=== PATIENT | female | born 1935 | race Caucasian/White ===

== ENCOUNTER 2018-09-02 09:47 | Emergency (ER) | payer MEDICARE ==
[~2018-09-02] VITALS: Ht 149.9 cm; Wt 65.8 kg
--- NOTE | 2018-09-02 09:47 | NUR ---
PT BIBA BLS TO ER BED 04
[2018-09-02 09:48] VITALS: BP 180/76
--- NOTE | 2018-09-02 09:50 | NUR ---
83/F BIBA FROM HOME C/O fell in bedroom from sitting position, hit head, found alert by son in law. -loc. sustained hematoma to L forehead pain 02/09. BLEEDING FROM 4TH TOENAIL ; BLEEDING IN CONTROL. gcs 15. alert and oriented on arrival. no deficitis noted. hx--- htn, dm, high cholesterol , arthritis. Addendum: 09/02/18 at 1040 by [email or web address] SARAHY LEGS SLIGHTLY REDNESS & SWELLING; + PEDAL PULSE. Addendum: 09/02/18 at 1142 by [email or web address] RETAINED ARTIS'S CATH FROM HOME URINE 1000 CC ;YELLOW.
--- NOTE | 2018-09-02 09:55 | NUR ---
Patient being evaluated by DR TURNER at bedside.
[2018-09-02] MEDS ORDERED: LISI-420 PO (09:59)
[2018-09-02] MEDS ORDERED: DULO20EC PO (09:59)
[2018-09-02] MEDS ORDERED: METF500T2 PO (09:59)
[2018-09-02] MEDS ORDERED: AMLO5TAB PO (09:59)
[2018-09-02] MEDS ORDERED: ASPI81CT89 PO (09:59)
[2018-09-02] MEDS ORDERED: SIMV10TA1 PO (09:59)
[2018-09-02] MEDS ORDERED: GLIP10TE PO (09:59)
[2018-09-02] MEDS ORDERED: ATEN25TA7 PO (09:59)
[2018-09-02] MEDS ORDERED: NACL 0.9% 1,000 ML IV ONE ×2 (10:00→11:25)
--- NOTE | 2018-09-02 10:24 | NUR ---
EKG AT BEDSIDE
[2018-09-02 10:26] LABS: BASOPHILS # (AUTO) 0.1 K/uL (0.00-0.22); EOSINOPHILS # (AUTO) 0.3 K/uL (0-0.4); EOSINOPHILS % (AUTO) 2.8 % (0.0-4.0); HEMATOCRIT 29.5 % (36-48); HEMOGLOBIN 9.8 g/dL (12.0-16.0); LYMPHOCYTES # (AUTO) 1.8 K/uL (2.5-16.5); LYMPHOCYTES % (AUTO) 19.1 % (20.5-51.1); MEAN CORPUSCULAR HEMOGLOBIN 29 pg (27-31); MEAN CORPUSCULAR HGB CONC 33 g/dL (33-37); MEAN CORPUSCULAR VOLUME 87.8 fL (80-94); MONOCYTES # (AUTO) 1.1 K/uL (0.8-1.0); MONOCYTES % (AUTO) 11.9 % (1.7-9.3); NEUTROPHILS # (AUTO) 6.1 K/uL (1.8-7.7); NEUTROPHILS % (AUTO) 65.2 % (42.2-75.2); PLATELET COUNT (AUTO) 279 K/uL (140-450); RED BLOOD CELL COUNT(AUTO) 3.36 MIL/uL (4.20-5.40); WHITE BLOOD COUNT (AUTO) 9.3 K/uL (4.8-10.8)
[2018-09-02 10:39] LABS: PROTHROMBIN TIME 9.9 secs (10.8-13.4)
[2018-09-02] MEDS ORDERED: BACITRACIN OINT 500 UNITS/GM PKT TP ONE (10:40)
[2018-09-02] MEDS ORDERED: NEOMYCIN/POLYMYXIN/BACITRACIN 0.9 GM/1 PKT TP ONE (10:40)
[2018-09-02 10:42] LABS: ALBUMIN 3.2 g/dL (3.4-5.0); ANION GAP 13.2 (8-16); ASPARTATE AMINOTRANSFERASE 35 U/L (15-37); CARBON DIOXIDE 27.9 mmol/L (21-32); CHLORIDE 90 mmol/L (98-107); CREATININE 0.6 mg/dL (0.6-1.3); GLUCOSE 134 mg/dL (74-106); MAGNESIUM 1.4 mg/dL (1.8-2.4); POTASSIUM 4.1 mmol/L (3.5-5.1); SODIUM SERUM 127 mmol/L (136-145); TOTAL BILIRUBIN 0.5 mg/dL (0.0-1.0); UREA NITROGEN, BLOOD 19 mg/dL (7-18)
[2018-09-02 10:43] LABS: ACETONE, SERUM NEGATIVE (NEGATIVE); AMYLASE 27 U/L (25-115); LIPASE 78 U/L (73-393)
[2018-09-02 11:29] LABS: APPEARANCE,URINE CLOUDY (CLEAR); BILIRUBIN,URINE NEGATIVE (NEGATIVE); BLOOD, URINE TRACE-I (NEGATIVE); COLOR,URINE YELLOW (YELLOW); LEUKOCYTE ESTERASE ,URINE 1+ (NEGATIVE); NITRITE, URINE NEGATIVE (NEGATIVE); PH,URINE 8.5 (5.0-9.0); UGLUCOSE NEGATIVE (NEGATIVE)
[2018-09-02 11:31] LABS: RBC,URINE NONE SEEN /HPF (0-5)
--- NOTE | 2018-09-02 11:32 | NUR ---
Patient being evaluated by DR TURNER at bedside.
--- NOTE | 2018-09-02 11:36 | NUR ---
Patient appears to be resting comfortably in bed. BP 147/37, P 79, Respirations even and unlabored. MD MADE AWARE. WILL CONTINUE TO MONITOR.
[2018-09-02 12:38] VITALS: BP 138/56
--- NOTE | 2018-09-02 12:38 | NUR ---
Patient discharged with v/s stable. Written and verbal after care instructions given and explained. Patient verbalized understanding. Wheel Chair Assisted with to car. All questions addressed prior to discharge. Advised to follow up with PMD.
== END 2018-09-02 12:38 | disposition home or self-care (01) ==
LOC: MED 09:47
DX: S00.83XA Contusion of other part of head, initial encounter (principal); S91.205A Unspecified open wound of left lesser toe(s) with damage to nail, initial encounter; E11.9 Type 2 diabetes mellitus without complications; I10 Essential (primary) hypertension; N28.9 Disorder of kidney and ureter, unspecified; E87.1 Hypo-osmolality and hyponatremia; Z79.82 Long term (current) use of aspirin; Z79.84 Long term (current) use of oral hypoglycemic drugs; Z79.899 Other long term (current) drug therapy; W01.0XXA Fall on same level from slipping, tripping and stumbling without subsequent striking against object, initial encounter; Y93.89 Activity, other specified; Y92.098 Other place in other non-institutional residence as the place of occurrence of the external cause; Y99.8 Other external cause status
CPT/HCPCS: 36415; 70450; 71045; 73630; 80053; 81001; 82009; 82150; 83036; 83690; 83735; 84484; 85025; 85610; 87086; 87186; 90471; 90715; 93005; 99284; J7030; Q0092